=== PATIENT | female | born 1980 | race Two or more races ===

== ENCOUNTER 2017-04-21 09:27 | Emergency (ER) | payer SELFPAY ==
[~2017-04-21] VITALS: Ht 160 cm; Wt 70.3 kg
[2017-04-21 10:25] LABS: BILIRUBIN,URINE NEGATIVE (NEG); GLUCOSE,URINE NEGATIVE (NEG); NITRITE,URINE NEGATIVE (NEG); PROTEIN,URINE 100 mg/dL (NEG-TRACE); UROBILINOGEN,URINE 0.2 mg/dL (0.2 mg/dL)
[2017-04-21] MEDS ORDERED: LEVO25TA4 PO (10:34)
[2017-04-21 10:37] LABS: BACTERIA,URINE FEW /HPF (0-FEW); RBC,URINE >40 /HPF (0-2); SQUAMOUS EPITHELIAL CELL,UR MOD /LPF; WBC,URINE OCC /HPF (0-4)
[2017-04-21 10:39] LABS: NEG OBC UR NEG; POS OBC UR POS
[2017-04-21 10:42] LABS: CALCIUM 8.2 mg/dL (8.5-10.1); CREATININE 0.9 mg/dL (0.6-1.0); GFR 70.8; POTASSIUM 3.8 mmol/L (3.5-5.1)
[2017-04-21 10:46] LABS: BASO % 1 % (0-3); EOS % 2 % (0-3); HEMATOCRIT 37.5 % (36.0-47.0); HEMOGLOBIN 13.1 g/dL (12.0-15.5); LYMPH # 2.2 x10^3/uL (1.0-4.8); LYMPH % 38 % (24-48); MEAN CORPUSCULAR HEMOGLOBIN 31 pg (25-35); MEAN CORPUSCULAR HGB CONC 35 g/dL (31-37); MEAN CORPUSCULAR VOLUME 89 fL (79-100); MONO % 5 % (0-9); NEUT % 55 % (31-73); PLATELET COUNT 210 x10^3/uL (140-400); RED BLOOD COUNT 4.22 x10^6/uL (3.50-5.40); RED CELL DISTRIBUTION WIDTH 15.2 % (11.5-14.5); WHITE BLOOD COUNT 5.8 x10^3/uL (4.0-11.0)
[2017-04-21 10:48] LABS: ALBUMIN/GLOBULIN RATIO 1.1 (1.0-1.7); TOTAL BILIRUBIN 0.4 mg/dL (0.2-1.0); TOTAL PROTEIN 7.8 g/dL (6.4-8.2)
--- NOTE | 2017-04-21 11:39 | RAD ---
Pelvic ultrasound, 04/21/2017: History: Heavy vaginal bleeding Transabdominal and transvaginal scans were obtained. The uterus measures 10.5 x 6 x 5.5 cm. The central uterine echo complex measures 1.1 cm. Small nabothian cysts are present. No uterine mass is seen. The ovaries are of normal size. There is blood flow in both ovaries. No adnexal mass is seen. A trace amount of free fluid is present in the pelvis. IMPRESSION: 1. The uterus is at the upper limits of normal in size. 2. Trace amount of free fluid in the pelvis. This amount of fluid can be on a physiologic basis. 3. The pelvic ultrasound is otherwise unremarkable.
[2017-04-21] MEDS ORDERED: NITR100C62 PO (12:14)
--- NOTE | 2017-04-21 12:14 | PHYS DOC ---
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 Patient states that her last normal menstrual cycles approximately 4 months ago. She states that she's been having irregular menstrual cycles since then. Patient states that she's been having some heavy bleeding in which she has gone through 2-3 pads in 2 hours. She'll states she is passing some clots however she denies any lightheadedness or dizziness. Review of Systems Review of Systems Constitutional: Denies fever or chills [] Eyes: Denies change in visual acuity, redness, or eye pain [] HENT: Denies nasal congestion or sore throat [] Respiratory: Denies cough or shortness of breath [] Cardiovascular: No additional information not addressed in HPI [] GI: Denies abdominal pain, nausea, vomiting, bloody stools or diarrhea [] : Denies dysuria or hematuria area complaining of vaginal bleeding Musculoskeletal: Denies back pain or joint pain [] Integument: Denies rash or skin lesions [] Neurologic: Denies headache, focal weakness or sensory changes [] Endocrine: Denies polyuria or polydipsia [] Allergies Allergies Allergies Coded Allergies Type Severity Reaction Last Updated Verified No Known Drug Allergies 04/21/17 No Physical Exam Physical Exam Constitutional: Well developed, well nourished, no acute distress, non-toxic appearance. [] HENT: Normocephalic, atraumatic, bilateral external ears normal, oropharynx moist, no oral exudates, nose normal. [] Eyes: PERRLA, EOMI, conjunctiva normal, no discharge. [] Neck: Normal range of motion, no tenderness, supple, no stridor. [] Cardiovascular:Heart rate regular rhythm, no murmur [] Lungs & Thorax: Bilateral breath sounds clear to auscultation [] Skin: Warm, dry, no erythema, no rash. [] Back: No tenderness Extremities: No tenderness, no cyanosis, no clubbing, ROM intact, no edema. [] Neurologic: Alert and oriented X 3, normal motor function, normal sensory function, no focal deficits noted. [] Psychologic: Affect normal, judgement normal, mood normal. [] Current Patient Data Vital Signs Vital Signs Date Time Temp Pulse Resp B/P (MAP) Pulse Ox O2 Delivery O2 Flow Rate FiO2 04/21/17 10:00 98.1 80 18 113/66 (82) 99 Room Air 98.1 Lab Values Laboratory Tests Test 04/21/17 09:50 04/21/17 10:00 Urine Collection Type Void Urine Color Red Urine Clarity Clear Urine pH 7.0 Urine Specific [place] <=1.005 Urine Protein 100 mg/dL (NEG-TRACE) Urine Glucose (UA) Negative mg/dL (NEG) Urine Ketones (Stick) Negative mg/dL (NEG) Urine Blood Large (NEG) Urine Nitrite Negative (NEG) Urine Bilirubin Negative (NEG) Urine Urobilinogen Dipstick 0.2 mg/dL (0.2 mg/dL) Urine Leukocyte Esterase Small (NEG) Urine RBC >40 /HPF (0-2) Urine WBC Occ /HPF (0-4) Urine Squamous Epithelial Cells Mod /LPF Urine Renal Epithelial Cells Occ /LPF Urine Bacteria Few /HPF (0-FEW) Urine Test Negative (NEG) White Blood Count 5.8 x10^3/uL (4.0-11.0) Red Blood Count 4.22 x10^6/uL (3.50-5.40) Hemoglobin 13.1 g/dL (12.0-15.5) Hematocrit 37.5 % (36.0-47.0) Mean Corpuscular Volume 89 fL (79-100) Mean Corpuscular Hemoglobin 31 pg (25-35) Mean Corpuscular Hemoglobin Concent 35 g/dL (31-37) Red Cell Distribution Width 15.2 % (11.5-14.5) H Platelet Count 210 x10^3/uL (140-400) Neutrophils (%) (Auto) 55 % (31-73) Lymphocytes (%) (Auto) 38 % (24-48) Monocytes (%) (Auto) 5 % (0-9) Eosinophils (%) (Auto) 2 % (0-3) Basophils (%) (Auto) 1 % (0-3) Neutrophils # (Auto) 3.2 x10^3uL (1.8-7.7) Lymphocytes # (Auto) 2.2 x10^3/uL (1.0-4.8) Monocytes # (Auto) 0.3 x10^3/uL (0.0-1.1) Eosinophils # (Auto) 0.1 x10^3/uL (0.0-0.7) Basophils # (Auto) 0.0 x10^3/uL (0.0-0.2) Sodium Level 140 mmol/L (136-145) Potassium Level 3.8 mmol/L (3.5-5.1) Chloride Level 104 mmol/L (98-107) Carbon Dioxide Level 27 mmol/L (21-32) Anion Gap 9 (6-14) Blood Urea Nitrogen 13 mg/dL (7-20) Creatinine 0.9 mg/dL (0.6-1.0) Estimated GFR (Cockcroft-Gault) 70.8 BUN/Creatinine Ratio 14 (6-20) Glucose Level 89 mg/dL (70-99) Calcium Level 8.2 mg/dL (8.5-10.1) L Total Bilirubin 0.4 mg/dL (0.2-1.0) Aspartate Amino Transferase (AST) 24 U/L (15-37) Alanine Aminotransferase (ALT) 28 U/L (14-59) Alkaline Phosphatase 67 U/L (46-116) Total Protein 7.8 g/dL (6.4-8.2) Albumin 4.0 g/dL (3.4-5.0) Albumin/Globulin Ratio 1.1 (1.0-1.7) Laboratory Tests 04/21/17 10:00 Laboratory Tests 04/21/17 10:00 EKG EKG [] Radiology/Procedures Radiology/Procedures [[facility] [address] [place] [address] IMAGING REPORT Signed PATIENT: SHANTAL PARMAR ACCOUNT: [id number] : 1980 LOCATION: ER AGE: 36 SEX: F EXAM STATUS: REG ER ORD. PHYSICIAN: CLARA HOYOS APRN REASON: heavy vaginal bleeding PROCEDURE: PELVIS W/TV Pelvic ultrasound, 04/21/2017: History: Heavy vaginal bleeding Transabdominal and transvaginal scans were obtained. The uterus measures 10.5 x 6 x 5.5 cm. The central uterine echo complex measures 1.1 cm. Small nabothian cysts are present. No uterine mass is seen. The ovaries are of normal size. There is blood flow in both ovaries. No adnexal mass is seen. A trace amount of free fluid is present in the pelvis. IMPRESSION: 1. The uterus is at the upper limits of normal in size. 2. Trace amount of free fluid in the pelvis. This amount of fluid can be on a physiologic basis. 3. The pelvic ultrasound is otherwise unremarkable. DICTATED and SIGNED BY: KELLY BOSWELL MD DATE: 04/21/17 0933 CC: CLARA HOYOS APRN; NO PCP; NON,STAFF ~ ] Course & Med Decision Making Course & Med Decision Making Pertinent Labs and Imaging studies reviewed. (See chart for details) Labelling Machine Operator line was used to obtain history of present illness as well as providing patient with ultrasound results CBC CMP and urine results. Patient was instructed to drink plenty fluids such as water or cranberry juice. Avoid cranberry juice cocktail, carbonate beverages, citrus fruits caffeine and alcohol sees her considered irritants. Patient will be encouraged to follow-up with an [facility] in regards to dysfunctional bleeding. Patient was given signs and symptoms to return back to emergency department such as lightheadedness or dizziness. For any increased bleeding. Patient agrees with discharge instructions treatment regimens and follow-up recommendations. [] Dragon Disclaimer Dragon Disclaimer This electronic medical record was generated, in whole or in part, using a voice recognition dictation system. Departure Departure Impression: Primary Impression: UTI (urinary tract infection) Additional Impression: Dysfunctional uterine bleeding Disposition: 01 HOME, SELF-CARE Condition: STABLE Referrals: NO PCP (PCP) Patient Instructions: Urinary Tract Infection, [id number], Uterine Bleeding, Dysfunctional, [id number] Additional Instructions: Activity as tolerated Drink plenty of water and cranberry juice. Avoid coverages cocktail, carbonate beverages, citrus fruits, alcohol and caffeine as these are considered irritants to the bladder. Tylenol or ibuprofen for pain and discomfort. Patient's as prescribed. Follow-up with [facility]AL in the next week. Return back to emergency prior signs symptoms of become worse. Scripts Nitrofurantoin Monohyd/M-Cryst (MACROBID [id number] MG CAPSULE) 100 Mg Capsule 1 CAP PO BID, #[id number] CAP Prov: CLARA HOYOS APRN 04/21/17 Problem Qualifiers CLARA HOYOS APRN Apr 21, 2017 12:14
[2017-04-21 12:40] VITALS: BP 106/62
== END 2017-04-21 12:43 | disposition home or self-care (01) ==
LOC: ER 09:27
DX: N93.8 Other specified abnormal uterine and vaginal bleeding (principal); N39.0 Urinary tract infection, site not specified; E03.9 Hypothyroidism, unspecified; Z98.51 Tubal ligation status
CPT/HCPCS: 36415; 76830; 76856; 80053; 81001; 81025; 85027; 87086; 99285-25